=== PATIENT | female | born 2000 | race Caucasian/White ===

== ENCOUNTER 2022-11-24 09:01 | Outpatient (OUT) | payer OTHER, SELFPAY ==
--- NOTE | 2022-11-24 | US_ITS ---
The [address] [address] Patient Name: REBECCA HSU MRN: [id number] date: 2000 Sex: F Assigned Patient Location: US Current Patient Location: US Accession/Order Number: [id number] Exam Date: 11/24/2022 09:05 Report Date: 11/24/2022 09:58 At the request of: ANA PAULA HSU Procedure: US pelvis EXAM: US pelvis HISTORY: . IUD PLACEMENT WITH PAIN . COMPARISON: None. TECHNIQUE: Transvaginal scanning was performed FINDINGS: Scanning of the pelvis demonstrates retroverted uterus measuring 6.2 x 3.5 x 5 cm. Endometrial complex measures 4 mm. Within the endometrial cavity of the uterus linear hyperechoic structures are noted with shadowing consistent with an IUD which appears in adequate position. Right ovary measures 3.6 x 1.5 x 2.2 cm. Color-flow is noted. Follicles are noted. Left ovary measures 2 x 1.5 x 3 cm. Color-flow is noted. Follicles are noted. No fluid is noted in the cul-de-sac. US/US pelvis IMPRESSION: 1. Normal-appearing uterus and endometrial complex with IUD in place. 2. Normal-appearing ovaries. Electronically authenticated by: COURTNEY ESAPRZA Date: 11/24/2022 09:58
== END 2022-11-24 09:02 | disposition home or self-care (01) ==
LOC: US 09:01
PROVIDERS: Visit Provider Obstetrics & Gynecology
DX: Z30.431 Encounter for routine checking of intrauterine contraceptive device (principal)
CPT/HCPCS: 76830; 76856

== ENCOUNTER 2023-02-17 09:20 | Outpatient (OUT) | payer OTHER, SELFPAY ==
[2023-02-17 10:07] LABS: Basophils Percent Auto 0.4 % (0.2-2.0); Eosinophils Absolute Auto 0.3 10^3/uL (0.0-0.7); Eosinophils Percent Auto 3.1 % (0.9-7.0); Hematocrit 42.9 % (36.0-48.0); Hemoglobin 13.8 g/dL (12.0-16.0); Immature Granulocytes Abs Auto 0.02 10^3/uL (0.00-0.03); Immature Granulocytes Pct Auto 0.2 % (0.0-0.5); Lymphocytes Absolute Auto 3.1 10^3/uL (1.2-3.8); Lymphocytes Percent Auto 28.8 % (20.5-60.0); Mean Corpuscular HGB Conc 32.2 g/dL (29.9-35.2); Mean Corpuscular Hemoglobin 29.2 pg (26.7-34.0); Mean Corpuscular Volume 90.9 fL (81.0-99.0); Mean Platelet Volume 10.6 fL (9.5-13.5); Monocytes Absolute Auto 0.6 10^3/uL (0.3-0.8); Monocytes Percent Auto 5.1 % (1.7-12.0); Neutrophils Absolute Auto 6.8 10^3/uL (1.4-6.5); Neutrophils Percent Auto 62.4 % (43.0-75.0); Platelet Count 230 10^3/uL (150-450); Red Blood Count 4.72 10^6/uL (4.20-5.40); Red Cell Distribution Width 11.6 % (11.0-15.0); White Blood Count 10.8 10^3/uL (4.0-11.0)
[2023-02-17 10:23] LABS: Estimated Average Glucose 100 mg/dL; Glycohemoglobin A1C 5.1 % (4.5-6.2)
[2023-02-17 10:38] LABS: Alanine Aminotransferase 22 U/L (14-59); Albumin Globulin Ratio 0.9; Albumin Level 3.6 g/dL (3.4-5.0); Alkaline Phosphatase 108 U/L (46-116); Anion Gap 9.4; Aspartate Amino Transferase 17 U/L (15-37); BUN Creatinine Ratio 21.7; Bilirubin Total 0.5 mg/dL (0.2-1.0); Carbon Dioxide 28.8 mmol/L (21.0-32.0); Chloride 104 mmol/L (98-107); Chol HDL Ratio 3.3; Cholesterol 173 mg/dL (<=200); Estimated GFR (African America >60 (>=60); Estimated GFR (Non-African Ame >60 (>=60); Globulin 4.1 g/dL; Glucose 87 mg/dL (74-106); HDL Cholesterol 53 mg/dL (40-60); LDL Cholesterol Calculated 107.6 mg/dL; Potassium 4.2 mmol/L (3.5-5.1); Sodium 138 mmol/L (136-145); TSH W/ REFLEX FT4 4.022 (0.358-3.740); Total Protein 7.7 g/dL (6.4-8.2); Triglycerides 62 mg/dL (<=150); VLDL CHOLESTEROL 12.4 mg/dL
[2023-02-18 06:09] LABS: HCV Ab Non Reactive (Non Reactive); HIV Ab/p24 Ag Screen Non Reactive (Non Reactive)
== END 2023-02-17 09:21 | disposition home or self-care (01) ==
LOC: LAB 09:24
PROVIDERS: PCP Nurse Practitioner Primary Care; Visit Provider Nurse Practitioner Primary Care
DX: Z00.00 Encounter for general adult medical examination without abnormal findings (principal); Z11.59 Encounter for screening for other viral diseases; Z11.4 Encounter for screening for human immunodeficiency virus [HIV]; Z13.6 Encounter for screening for cardiovascular disorders; Z13.29 Encounter for screening for other suspected endocrine disorder
CPT/HCPCS: 36415; 80053; 80061; 83036; 84443; 85025; 86803; 87389

== ENCOUNTER 2024-01-27 11:20 | Outpatient (OUT) | payer OTHER, SELFPAY ==
--- OUTSIDE RECORDS SUMMARY | 2024-01-27 11:32 | XMS_ITS | CCD ---
Author Organization [facility] Care Team Providers Care Newspaper Managing Editor Name Role Phone DR MAIRA GODFREY Primary Care Unavailable BRANDI, DR HIRAM Somers Attending Unavailable DR HIRAM PAZ Admitting Unavailable DR HIRAM PAZ Consulting Unavailable CHETAN HUMMEL Consulting Unavailable Carole Wang Consulting Unavailable BEKAH, DR MAIRA Edmonds Primary Care Unavailable BEKAH, DR MAIRA Edmonds Consulting Unavailable BEKAH, DR MAIRA Edmonds Attending Unavailable DR MAIRA GODFREY Admitting Unavailable LUDWIG PRIEST Attending Unavailable LUDWIG PRIEST Admitting Unavailable LUDWIG PRIEST Consulting Unavailable DR MAIRA GODFREY Primary Care Unavailable Eloy Richards Attending Unavailable Eloy Richards Attending Unavailable Allergies Allergy Classification Reported Allergen(s) Allergy Type Date of Onset Reaction(s) Facility (1 source) Permethrin; Translations: [Elimite] Drug Allergy [facility] Repository Problems Problem Classification Problem Date Documented Da te Episodic/Chronic Acute and chronic tonsillitis (2 sources) Acute tonsillitis, unspecified; Translations: [ACUTE TONSILLITIS UNSPECIFIED] Onset: 05-12-2021 Episodic Malaise and fatigue (4 sources) Other fatigue; Translations: [OTHER FATIGUE] Onset: 04-30-2021 Episodic Other skin disorders (1 source) Generalized hyperhidrosis; Translations: [GENERALIZED HYPERHIDROSIS] Onset: 05-01-2021 Episodic Other upper respiratory infections (3 sources) Acute pharyngitis, unspecified; Translations: [ACUTE PHARYNGITIS UNSPECIFIED] Onset: 05-10-2021 Episodic Viral infection (2 sources) Infectious mononucleosis, unspecified without complication; Translations: [INFECTIOUS MONO UNS W/O COMP] Onset: 05-12-2021 Episodic Results Test Name Value Interpretation Reference Range Facility CBC AUTO DIFFon 05-09-2021 BASO # 0.1 103/ul Normal 0.0-0.1 [facility] Comment on above: Performed By: #### C BC #### [facility] [address] [address] [address] Moira Green Basophils/100 WBC (Bld) 1.3 % Normal 0.2-2.0 [facility] Comment on above: Performed By: #### C BC #### [facility] [address] [address] [address] Moira Green EO # 0.1 103/ul Normal 0.0-0.7 [facility] Comment on above: Performed By: #### C BC #### [facility] [address] [address] [address] Moira Green Eosinophils/100 WBC (Bld) 0.5 % Critically low 0.9-7.0 [facility] Comment on above: Performed By: #### C BC #### [facility] [address] [place] [address] Dr. Moira Green Erythrocyte distribution width (RBC) [Ratio] 13.5 % Normal 11.0-15.0 [facility] Comment on above: Performed By: #### C BC #### [facility] [address] [place] [address] Dr. Moira Green Hematocrit (Bld) [Volume fraction] 41.2 % Normal 36.0-48.0 [facility] Comment on above: Performed By: #### C BC #### [facility] [address] [place] [address] Dr. Moira Green Hemoglobin (Bld) [Mass/Vol] 13.8 g/dL Normal 12.0-16.0 [facility] Comment on above: Performed By: #### C BC #### [facility] [address] [address] [address] Moira Green IG # 0.04 10e3/ul Critically high 0.00-0.03 [facility] Comment on above: Performed By: #### C BC #### [facility] [address] [address] [address] Moira Green IG % 0.4 % Normal 0.0-0.[address] [facility] Comment on above: Performed By: #### C BC #### [facility] [address] [address] [address] Moira Green LYMPH # 5.2 103/ul Critically high 1.2-3.8 [facility] Comment on above: Performed By: #### C BC #### [facility] [address] [address] [address] Moira Green Lymphocytes/100 WBC (Bld) 52.5 % Normal 20.5-60.0 [facility] Comment on above: Performed By: #### C BC #### [facility] [address] [place] [address] Dr. Moira Green MANUAL DIFF REQ NO Normal [facility] Comment on above: Performed By: #### C BC #### [facility] [address] [place] [address] Dr. Moira Green MCH (RBC) [Entitic mass] 30.3 pg Normal 26.7-34.0 [facility] Comment on above: Performed By: #### C BC #### [facility] [address] [place] [address] Dr. Moira Green MCHC (RBC) [Mass/Vol] 33.5 g/dL Normal 29.9-35.2 [facility] Comment on above: Performed By: #### C BC #### [facility] [address] [place] [address] Dr. Moira Green MCV (RBC) [Entitic vol] 90.5 fL Normal 81.0-99.0 [facility] Comment on above: Performed By: #### C BC #### [facility] [address] [place] [address] Dr. Moira Green MONO # 0.5 103/ul Normal 0.3-0.8 [facility] Comment on above: Performed By: #### C BC #### [facility] [address] [place] [address] Dr. Moira Green Monocytes/100 WBC (Bld) 5.4 % Normal 1.7-12.0 [facility] Comment on above: Performed By: #### C BC #### [facility] [address] [place] [address] Dr. Moira Green NEUT # 4.0 103/ul Normal 1.4-6.5 [facility] Comment on above: Performed By: #### C BC #### [facility] [address] [place] [address] Dr. Moira Green Neutrophils/100 WBC (Bld) 39.9 % Critically low 43.0-75.0 [facility] Comment on above: Performed By: #### C BC #### [facility] [address] [place] [address] Dr. Moira Green Platelet mean volume (Bld) [Entitic vol] 9.4 fL Critically low 9.5-13.5 [facility] Comment on above: Performed By: #### C BC #### [facility] [address] [place] [address] Dr. Moira Green PLT 294 103/ul Normal 150-[address] [facility] Comment on above: Performed By: #### C BC #### [facility] [address] [place] [address] Dr. Moira Green RBC 4.55 106/ul Normal 4.20-5.[address] [facility] Comment on above: Performed By: #### C BC #### [facility] [address] [place] [address] Dr. Moira Green WBC 9.9 103/ul Normal 4.0-11.[address] [facility] Comment on above: Performed By: #### C BC #### [facility] [address] [place] [address] NECK ST W CONon CT NECK ST W CON CT NECK ST W CON: 05/08/2021 9:17 PM EDT CLINICAL HISTORY: 20 years old Female with Peritonsillar abscess. [place]. COMPARISON: None available. TECHNIQUE: Contiguous axial images were obtained through the neck from the skull base inferiorly to the thoracic inlet after the intravenous administration of contrast. Additional coronal and sagittal reconstruction images were obtained. Dose reduction techniques were achieved by using automated exposure control and/or adjustment of mA and/or kV according to patient size and/or use of iterative reconstruction technique. FINDINGS: Prominence of the adenoids and lingular tonsils is present without abnormal hypoenhancement to suggest abscess formation. Numerous mesenteric and enlarged cervical lymph nodes are seen bilaterally involving multiple change with the larger as follows: Right level 2 lymph nodes measuring 1.6 x 0.9 x 2.8 cm and 1.3 x 1.5 x 2.0 cm, left level 2 cervical lymph nodes measuring 1.0 x 2.0 x 2.4 cm and 1.0 x 2.1 x 2.2 cm left level 1 lymph node measuring 2.8 x 1.9 x 0.9 cm. Additional rounded abnormal appearing lymph nodes are seen throughout. The base of the tongue, parotid and submandibular glands as well as the true and false vocal cords appear normal with no masses identified. The airway is widely patent. The prevertebral soft tissues appear normal. The parapharyngeal spaces are preserved. Fascial planes are preserved. The piriform sinuses and aryepiglottic folds are symmetric and appear normal. The enhancement of the major arterial and venous structures is normal. The parotid and salivary glands are symmetric. The muscular elements in the neck are symmetric. Visualized portions the right and left lobe of the thyroid gland appears symmetric and normal. The osseous structures are grossly unremarkable. IMPRESSION: 1. Mild cervical lymphadenopathy diffusely most significant at the level 2 nodes compatible with provided history of mono. 2. Mild tonsillar and adenoidal enlargement also likely relating to mottle. No drainable abscess formation identified. Recommendation: Follow up of adenopathy to resolution clinically is recommended. Neck ultrasound could be obtained as a follow-up imaging if there is lack of resolution clinically. Electronically authenticated by: CAROLE WANG Date: 2021-05-08 23:[address] [facility] PREG HCG QUALon 05-09-2021 , QUAL Negative Normal NEGATIVE [facility] Comment on above: Performed By: #### P REG #### [facility] [address] [place] [address] Dr. Moira Green PROTIMEon 05-09-2021 INR Coag (PPP) [Relative time] 0.93 {INR} Normal [facility] Comment on above: Performed By: #### P T, PTT #### [facility] [address] [place] [address] Dr. Moira Green INR GUIDELINES SEE BELOW Normal [facility] Comment on above: Result Comment: LANDEN RED INR: 2.0 - 3.0 CONDITIONS NOT LISTED BELOW 2.5 - 3.5 FOR PROSTHETIC HEART VALVE REPLACEMENT 2.5 - 3.5 RECURRENT THROMBOSIS Performed By: #### P T, PTT #### [facility] [address] [place] [address] Dr. Moira Green PT Coag (PPP) [Time] 10.1 s Normal 9.0-11.[address] [facility] Comment on above: Performed By: #### P T, PTT #### [facility] [address] [place] [address] Dr. Moira Green PTTon 05-09-2021 aPTT Coag (Bld) [Time] 30.5 s Normal 22.3-36.[address] [facility] Comment on above: Performed By: #### P T, PTT #### [facility] [address] [place] [address] Dr. Moira Green MELVA-SANTOYO VIRUS (EBV) AB PROFILEon 05-01-2021 EBV Ab VCA, IgG <18.0 Normal 0.0-17.9 [facility] Comment on above: Result Comment: Nega tive <18.0 Equivocal 18.0 - 21.9 Positive >21.9 Performed By: #### E BVPROF #### [facility] [address] [place] [address] Dr. Moira Green EBV Ab VCA, IgM 68.0 U/mL Critically high 0.0-35.[address] [facility] Comment on above: Result Comment: Nega tive <36.0 Equivocal 36.0 - 43.9 Positive >43.9 Performed By: #### E BVPROF #### [facility] [address] [place] [address] Dr. Moira Green EBV Nuclear Antigen Ab, IgG <18.0 Normal 0.0-17.[address] [facility] Comment on above: Result Comment: Nega tive <18.0 Equivocal 18.0 - 21.9 Positive >21.9 Performed By: #### E BVPROF #### [facility] [address] [place] [address] Dr. Moira Green Interpretation: Comment Normal [facility] Comment on above: Result Comment: EBV Interpretation Chart Cleary: Antibody Present + Antibody Absent - Interpretation VCA-IgM VCA-IgG EBNA-IgG . No previous infection/ - - - Susceptible Primary infection (new + + - or recent) Past Infection +or- + + See comment below* + - - *Results indicate infection with EBV at some time however cannot predict the timing of the infection since antibodies to EBNA usually develop after primary infection or, alternatively, approximately 5-10% of patients with EBV never develop antibodies to EBNA. Performed By: #### E BVPROF #### [facility] [address] [place] [address] Dr. Moira Green CBC W MANUAL DIFFon 05-01-19 22 ATYPICAL LYMPH # Normal [facility] Comment on above: Performed By: #### P T, PTT #### [facility] [address] [place] [address] Dr. Moira Green ATYPICAL LYMPH % Normal [facility] Comment on above: Performed By: #### P T, PTT #### [facility] [address] [place] [address] Dr. Moira Green BAND # 0.9 103/ul Critically high 0.0-0.3 [facility] Comment on above: Performed By: #### P T, PTT #### [facility] [address] [place] [address] Dr. Moira Green BAND % 16 % Critically high 0-5 [facility] Comment on above: Performed By: #### P T, PTT #### [facility] [address] [place] [address] Dr. Moira Green BASOM # 0.06 103/ul Normal 0.00-0.[address] [facility] Comment on above: Performed By: #### P T, PTT #### [facility] [address] [place] [address] Dr. Moiar Green BASOM % 1.0 % Normal 0.2-2.[address] [facility] Comment on above: Performed By: #### P T, PTT #### [facility] [address] [place] [address] Dr. Moira Green BLAST # Normal [facility] Comment on above: Performed By: #### P T, PTT #### [facility] [address] [place] [address] Dr. Moira Green BLAST % Normal [facility] Comment on above: Performed By: #### P T, PTT #### [facility] [address] [place] [address] Dr. Moira Green CORRECTED WBC Normal 4.0-11.0 [facility] Comment on above: Performed By: #### P T, PTT #### [facility] [address] [place] [address] Dr. Moira Green EOS # 0.00 103/ul Normal 0.00-0.70 [facility] Comment on above: Performed By: #### P T, PTT #### [facility] [address] [place] [address] Dr. Moira Green EOS% 0.0 % Critically low 0.9-7.0 [facility] Comment on above: Performed By: #### P T, PTT #### [facility] [address] [place] [address] Dr. Moira Green HCT 43.9 % Normal 36.0-48.0 [facility] Comment on above: Performed By: #### P T, PTT #### [facility] [address] [place] [address] Dr. Moira Green HGB 14.8 g/dl Normal 12.0-16.0 [facility] Comment on above: Performed By: #### P T, PTT #### [facility] [address] [place] [address] Dr. Moira Green LYMPHM # 1.31 103/ul Normal 1.20-3.80 [facility] Comment on above: Performed By: #### P T, PTT #### [facility] [address] [place] [address] Dr. Moira Green LYMPHM% 23.0 % Normal 20.5-60.0 [facility] Comment on above: Performed By: #### P T, PTT #### [facility] [address] [place] [address] Dr. Moira Green MCH 30.3 pg Normal 26.7-34.0 [facility] Comment on above: Performed By: #### P T, PTT #### [facility] [address] [place] [address] Dr. Moira Green MCHC 33.7 g/dl Normal 29.9-35.2 [facility] Comment on above: Performed By: #### P T, PTT #### [facility] [address] [place] [address] Dr. Moira Green MCV 89.8 fL Normal 81.0-99.0 [facility] Comment on above: Performed By: #### P T, PTT #### [facility] [address] [place] [address] Dr. Moira Green METAMYELOCYTE # 0.1 103/ul Normal [facility] Comment on above: Performed By: #### P T, PTT #### [facility] [address] [place] [address] Dr. Moira Green METAMYELOCYTE % 2 % Normal [facility] Comment on above: Performed By: #### P T, PTT #### [facility] [address] [place] [address] Dr. Moira Green MONOM# 0.40 103/ul Normal 0.30-0.[address] [facility] Comment on above: Performed By: #### P T, PTT #### [facility] [address] [place] [address] Dr. Moira Green MONOM% 7.0 % Normal 1.7-12.[address] [facility] Comment on above: Performed By: #### P T, PTT #### [facility] [address] [place] [address] Dr. Moira Green MPV 10.3 fL Normal 9.5-13.5 [facility] Comment on above: Performed By: #### P T, PTT #### [facility] [address] [place] [address] Dr. Moira Green MYELOCYTE # 0.1 103/ul Normal [facility] Comment on above: Performed By: #### P T, PTT #### [facility] [address] [place] [address] Dr. Moira Green MYELOCYTE % 1 % Normal [facility] Comment on above: Performed By: #### P T, PTT #### [facility] [address] [address] [address] Moira Green NRBC Normal [facility] Comment on above: Performed By: #### P T, PTT #### [facility] [address] [place] [address] Dr. Moira Green PLT 151 103/ul Normal 150-450 [facility] Comment on above: Performed By: #### P T, PTT #### [facility] [address] [place] [address] Dr. Moira Green RBC 4.89 106/ul Normal 4.20-5.40 [facility] Comment on above: Performed By: #### P T, PTT #### [facility] [address] [place] [address] Dr. Moira Green RDW 12.1 % Normal 11.0-15.0 [facility] Comment on above: Performed By: #### P T, PTT #### [facility] [address] [place] [address] Dr. Moira Green SEG # 2.85 103/ul Normal 1.40-6.[address] [facility] Comment on above: Performed By: #### P T, PTT #### [facility] [address] [place] [address] Dr. Moira Green SEG % 50.0 % Normal 43.0-75.0 [facility] Comment on above: Performed By: #### P T, PTT #### [facility] [address] [place] [address] Dr. Moira Green WBC 5.7 103/ul Normal 4.0-11.0 [facility] Comment on above: Performed By: #### P T, PTT #### [facility] [address] [place] [address] Dr. Moira Green FREE T3on 04-30-2021 FREE T3 1.71 pg/mlL Critically low 2.77-5.27 [facility] Comment on above: Performed By: #### T SH, BMP, FT3 #### [facility] [address] [place] [address] Dr. Moira Green FREE T4on 04-30-2021 Free T4 [Mass/Vol] 1.00 ng/dL Normal 0.78-2.19 [facility] Comment on above: Performed By: #### F T4 #### [facility] [address] [place] [address] Dr. Moira Green PROF CHEM 8 (BAS METB)on Anion gap [Moles/Vol] 14.1 mmol/L Normal [facility] Comment on above: Performed By: #### T SH, BMP, FT3 #### [facility] [address] [place] [address] Dr. Moira Green Calcium [Mass/Vol] 8.7 mg/dL Normal 8.4-10.2 [facility] Comment on above: Performed By: #### T SH, BMP, FT3 #### [facility] [address] [place] [address] Dr. Moira Green Chloride [Moles/Vol] 101 mmol/L Normal 98-[address] [facility] Comment on above: Performed By: #### T SH, BMP, FT3 #### [facility] [address] [place] [address] Dr. Moira Green CO2 [Moles/Vol] 23.9 mmol/L Normal 22.0-30.0 [facility] Comment on above: Performed By: #### T SH, BMP, FT3 #### [facility] [address] [place] [address] Dr. Moira Green Creatinine [Mass/Vol] 0.79 mg/dL Normal 0.52-1.[address] [facility] Comment on above: Performed By: #### T SH, BMP, FT3 #### [facility] [address] [address] [address] Moira Green EGFR-AF TONGAN >60 Normal >=60 [facility] Comment on above: Performed By: #### T MARTÍN, BMP, FT3 #### [facility] [address] [address] [address] Moira Green EGFR-NON AF TONGAN >60 Normal >=60 [facility] Comment on above: Performed By: #### T MARTÍN, BMP, FT3 #### [facility] [address] [place] [address] Dr. Moira Green Glucose [Mass/Vol] 119 mg/dL Critically high 74-106 [facility] Comment on above: Performed By: #### T MARTÍN, BMP, FT3 #### [facility] [address] [place] [address] Dr. Moira Green Potassium [Moles/Vol] 4.0 mmol/L Normal 3.4-5.0 [facility] Comment on above: Performed By: #### T MARTÍN, BMP, FT3 #### [facility] [address] [place] [address] Dr. Moira Green Sodium [Moles/Vol] 135 mmol/L Critically low 137-145 [facility] Comment on above: Performed By: #### T MARTÍN, BMP, FT3 #### [facility] [address] [place] [address] Dr. Moira Green Urea nitrogen [Mass/Vol] 9.0 mg/dL Normal 7.0-17.0 [facility] Comment on above: Performed By: #### T MARTÍN, BMP, FT3 #### [facility] [address] [place] [address] Dr. Moira Green Urea nitrogen/Creatinin e [Mass ratio] 11.4 mg/mg Normal [facility] Comment on above: Performed By: #### T MARTÍN, BMP, FT3 #### [facility] [address] [place] [address] Dr. Moira Green TSHon 04-30-2021 TSH 2.155 uIU/mL Normal 0.470-4.680 [facility] Comment on above: Performed By: #### T SH, BMP, FT3 #### [facility] [address] [address] [address] Moira Green TSH RANGE SEE BELOW Normal [facility] Comment on above: Result Comment: <0.3 4 UIU/ml HYPERTHYROID 0.34-5.60 UIU/ml EUTHYROID >5.60 UIU/ml HYPOTHYROID Performed By: #### T SH, BMP, FT3 #### [facility] [address] [address] [address] Moira Green Blood Cultureon 01-17-2021 Bacteria identified Cx Nom (Bld) NO GROWTH 5 DAYS PERFORMED BY: [place] [address] PATHOLOGIST [employer] RECREATION DIRECTOR RM CURTIS M.D. [facility] Comment on above: Performed By: #### B MP, CBC, HEPATIC, LIPASE #### [address] Bacteria identified Cx Nom (Bld) NO GROWTH 5 DAYS PERFORMED BY: [place] [address] PATHOLOGIST [employer] RECREATION DIRECTOR RM CURTSI M.D. [facility] Comment on above: Performed By: #### B MP, CBC, HEPATIC, LIPASE #### [address] Complete Blood Count Auto Di ffon 01-17-2021 Basophils (Bld) [#/Vol] 0.0 10*3/uL Normal 0.0-0.2 [facility] Comment on above: Result Comment: PERF ORMED BY: [place] [address] PATHOLOGIST [employer] RECREATION DIRECTOR RM CURTIS M.D. Performed By: #### B MP, CBC, HEPATIC, LIPASE #### [facility] [address] [place] [address] [place] Basophils/100 WBC (Bld) 0.4 % Normal . [facility] Comment on above: Performed By: #### B MP, CBC, HEPATIC, LIPASE #### [address] Eosinophils (Bld) [#/Vol] 0.3 10*3/uL Normal 0.0-0.45 [facility] Comment on above: Performed By: #### B MP, CBC, HEPATIC, LIPASE #### [address] Eosinophils/100 WBC (Bld) 2.3 % Normal . [facility] Comment on above: Performed By: #### B MP, CBC, HEPATIC, LIPASE #### [address] Erythrocyte distribution width (RBC) [Ratio] 11.9 % Normal 11.9-15.3 [facility] Comment on above: Performed By: #### B MP, CBC, HEPATIC, LIPASE #### [address] Hematocrit (Bld) [Volume fraction] 39.1 % Normal 34.0-46.4 [facility] Comment on above: Performed By: #### B MP, CBC, HEPATIC, LIPASE #### [address] Hemoglobin (Bld) [Mass/Vol] 12.9 g/dL Normal 11.8-15.4 [facility] Comment on above: Performed By: #### B MP, CBC, HEPATIC, LIPASE #### [address] Lymphocytes (Bld) [#/Vol] 3.3 10*3/uL Normal 1.00-4.8 [facility] Comment on above: Performed By: #### B MP, CBC, HEPATIC, LIPASE #### [address] Lymphocytes/100 WBC (Bld) 29.0 % Normal . [facility] Comment on above: Performed By: #### B MP, CBC, HEPATIC, LIPASE #### [address] MCH (RBC) [Entitic mass] 30.2 pg Normal 24.7-34.3 [facility] Comment on above: Performed By: #### B MP, CBC, HEPATIC, LIPASE #### [address] MCV (RBC) [Entitic vol] 91.3 fL Normal 80-100 [facility] Comment on above: Performed By: #### B MP, CBC, HEPATIC, LIPASE #### [address] Mean Corpuscular HGB Conc 33.1 g/dL Normal 32.0-35.0 [facility] Comment on above: Performed By: #### B MP, CBC, HEPATIC, LIPASE #### [address] Monocytes (Bld) [#/Vol] 0.5 10*3/uL Normal 0.0-0.8 [facility] Comment on above: Performed By: #### B MP, CBC, HEPATIC, LIPASE #### [address] Monocytes/100 WBC (Bld) 4.8 % Normal . [facility] Comment on above: Performed By: #### B MP, CBC, HEPATIC, LIPASE #### [address] Neutrophils (Bld) [#/Vol] 7.2 10*3/uL Normal 1.8-7.7 [facility] Comment on above: Performed By: #### B MP, CBC, HEPATIC, LIPASE #### [address] Neutrophils/100 WBC (Bld) 63.5 % Normal . [facility] Comment on above: Performed By: #### B MP, CBC, HEPATIC, LIPASE #### [address] Nucleated RBC/100 WBC (Bld) [Ratio] 0.0 % Normal 0-0.5 [facility] Comment on above: Performed By: #### B MP, CBC, HEPATIC, LIPASE #### [address] [place] [address] [place] Platelet mean volume (Bld) [Entitic vol] 8.2 fL Normal 6.3-10.7 [facility] Comment on above: Performed By: #### B MP, CBC, HEPATIC, LIPASE #### [address] Platelets (Bld) [#/Vol] 263 10*3/uL Normal 150-450 [facility] Comment on above: Performed By: #### B MP, CBC, HEPATIC, LIPASE #### [address] RBC (Bld) [#/Vol] 4.29 10*6/uL Normal 3.60-5.[address] [facility] Comment on above: Performed By: #### B MP, CBC, HEPATIC, LIPASE #### [address] WBC (Bld) [#/Vol] 11.3 10*3/uL High 4.5-11.[address] [facility] Comment on above: Performed By: #### B MP, CBC, HEPATIC, LIPASE #### [address] Lactic Acidon 01-17-2021 Lactate [Moles/Vol] 0.7 mmol/L Normal 0.5-2.2 [facility] Comment on above: Result Comment: PERF ORMED BY: [place] [address] PATHOLOGIST [employer] RECREATION DIRECTOR RM CURTIS M.D. Performed By: #### B MP, CBC, HEPATIC, LIPASE #### [address] Basic Metabolic Panelon Calcium [Mass/Vol] 9.1 mg/dL Normal 8.2-10.2 [facility] Comment on above: Performed By: #### B MP, CBC, HEPATIC, LIPASE #### [address] Chloride [Moles/Vol] 102 mmol/L Normal 95-114 [facility] Comment on above: Performed By: #### B MP, CBC, HEPATIC, LIPASE #### [facility] [address] CO2 [Moles/Vol] 25.0 mmol/L Normal 22.0-30.0 [facility] Comment on above: Performed By: #### B MP, CBC, HEPATIC, LIPASE #### [facility] [address] Creatinine [Mass/Vol] 0.69 mg/dL Normal 0.44-1.03 [facility] Comment on above: Performed By: #### B MP, CBC, HEPATIC, LIPASE #### [address] Creatinine Clr Calc Pharmacy 111.93 [facility] Comment on above: Performed By: #### B MP, CBC, HEPATIC, LIPASE #### [address] Estimated GFR ( Zahira > 60 [facility] Comment on above: Result Comment: GFR estimated reference range: According to KDOQI guidelines, <60 ml/min/1.73m2 is sufficient to diagnose a patient with chronic kidney disease. Performed By: #### B MP, CBC, HEPATIC, LIPASE #### [address] Estimated GFR (Non- Am > 60 [facility] Comment on above: Performed By: #### B MP, CBC, HEPATIC, LIPASE #### [address] Glucose [Mass/Vol] 80 mg/dL Normal 70-100 [facility] Comment on above: Result Comment: [place] om Glucose Reference Range is dependent on time and content of last meal. Glucose of more than 200 mg/dL in a nonstressed, ambulatory subject supports the diagnosis of Diabetes Mellitus. ADA recommended reference range Performed By: #### B MP, CBC, HEPATIC, LIPASE #### [address] Potassium [Moles/Vol] 3.8 mmol/L Normal 3.5-5.1 [facility] Comment on above: Performed By: #### B MP, CBC, HEPATIC, LIPASE #### [facility] [address] [place] [address] [place] Sodium [Moles/Vol] 135 mmol/L Low 136-146 [facility] Comment on above: Performed By: #### B MP, CBC, HEPATIC, LIPASE #### [facility] [address] [place] [id number] [place] Urea nitrogen [Mass/Vol] 11 mg/dL Normal 9-23 [facility] Comment on above: Performed By: #### B MP, CBC, HEPATIC, LIPASE #### [facility] [address] Blood Cultureon 01-16-2021 Bacteria identified Cx Nom (Bld) Critical value result called at 2126 on 01/16/21 Gram Stain Gram Positive Cocci ORGANISM: Staphylococcus sp coag neg (O:STACN) Aerobic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
[2024-01-27 12:08] LABS: Basophils Percent Auto 0.3 % (0.2-2.0); Eosinophils Absolute Auto 0.3 10^3/uL (0.0-0.7); Eosinophils Percent Auto 2.4 % (0.9-7.0); Hematocrit 42.5 % (36.0-48.0); Immature Granulocytes Abs Auto 0.15 10^3/uL (0.00-0.03); Immature Granulocytes Pct Auto 1.3 % (0.0-0.5); Lymphocytes Absolute Auto 2.9 10^3/uL (1.2-3.8); Mean Corpuscular HGB Conc 32.9 g/dL (29.9-35.2); Mean Corpuscular Hemoglobin 29.2 pg (26.7-34.0); Mean Corpuscular Volume 88.5 fL (81.0-99.0); Mean Platelet Volume 9.4 fL (9.5-13.5); Monocytes Absolute Auto 0.5 10^3/uL (0.3-0.8); Monocytes Percent Auto 4.7 % (1.7-12.0); Neutrophils Absolute Auto 7.5 10^3/uL (1.4-6.5); Neutrophils Percent Auto 66.3 % (43.0-75.0); Platelet Count 341 10^3/uL (150-450); Red Cell Distribution Width 12.1 % (11.0-15.0); White Blood Count 11.4 10^3/uL (4.0-11.0)
[2024-01-27 12:25] LABS: Estimated Average Glucose 108 mg/dL; Glycohemoglobin A1C 5.4 % (4.5-6.2)
[2024-01-27 12:40] LABS: Thyroid Stimulating Hormone 2.035 uIU/mL (0.358-3.740)
== END 2024-01-27 11:21 | disposition home or self-care (01) ==
LOC: LAB 11:24
PROVIDERS: Visit Provider Obstetrics & Gynecology
DX: R63.5 Abnormal weight gain (principal); N92.1 Excessive and frequent menstruation with irregular cycle
CPT/HCPCS: 36415; 83036; 84443; 85025

== ENCOUNTER 2024-11-01 12:08 | Outpatient (REF) | payer OTHER, SELFPAY ==
--- OUTSIDE RECORDS SUMMARY | 2024-11-01 12:16 | XMS_ITS | CCD ---
Author Organization [facility] Care Team Providers Care Packing Machine Can Feeder Name Role Phone DR MAIRA GODFREY Primary Care Unavailable BRANDI, DR HIRAM Somers Attending Unavailable BRANDI, DR HIRAM Somers Admitting Unavailable BRANDI, DR HIRAM Somers Consulting Unavailable CHETAN HUMMEL Consulting Unavailable Carole Wang Consulting Unavailable BEKAH, DR MAIRA Edmonds Primary Care Unavailable BEKAH, DR MAIRA Edmonds Consulting Unavailable BEKAH, DR MAIRA Edmonds Attending Unavailable BEKAH, DR MAIRA Edmonds Admitting Unavailable LUDWIG PRIEST Attending Unavailable LUDWIG PRIEST Admitting Unavailable LUDWIG PRIEST Consulting Unavailable BEKAH, DR MAIRA Edmonds Primary Care Unavailable Eloy Richards Attending Unavailable Eloy Richards Attending Unavailable Unavailable Primary Care Provider UnavailANA PAULA Espinosa Attending Unavailable CYNDI WU Attending Unavailable ANA PAULA ROBLERO Attending Unavailable CYNDI WU Attending Unavailable Allergies Allergy Classification Reported Allergen(s) Allergy Type Date of Onset Reaction(s) Facility (1 source) Permethrin; Translations: [Elimite] Drug Allergy [facility] Repository (4 sources) Permethrin Drug Allergy 01-27-2024 [facility] Work Phone: Medications Current Medications Medication Drug Class(es) Dates Sig (Normalized) Sig (Original) 24 hr metFORMIN hydrochloride 500 mg extended release oral tablet (13 sources) Biguanide Start: 01-27-2024 End: 01-26-2025 take 1 tablet by mouth every twenty-four hours at mealtime metFORMIN XR (Glucophage-XR) 500 MG 24 hr tablet Indications: Weight gain Take 1 tablet (500 mg) by mouth in the evening. Take with meals Do not crush, chew, or split. 30 tablet 11 01/27/2024 01/26/2025 Active phentermine hydrochloride 37.5 mg oral tablet (20 sources) Sympathomimetic Amine Anorectic Start: 03-15-2024 End: 10-11-2024 take 1 tablet by mouth before mealtime phentermine (Adipex-P) 37.5 MG tablet Indications: Encounter for weight management Take 1 tablet (37.5 mg) by mouth in the morning. Take before meals. 90 tablet 07/13/2024 Active Problems Active Problems Problem Classification Problem Date Documented Date Episodic/Chronic Acute and chronic tonsillitis (2 sources) Acute tonsillitis, unspecified; Translations: [ACUTE TONSILLITIS UNSPECIFIED] Onset: 05-12-2021 Episodic Administrative/social admission (5 sources) Patient encounter status; Translations: [Persons encountering health services in other specified circumstances] 03-15-2024 Episodic Contraceptive and procreative management (2 sources) Intrauterine contraceptive device in situ; Translations: [Encounter for routine checking of intrauterine contraceptive device] 01-27-2024 Episodic Malaise and fatigue (4 sources) Other fatigue; Translations: [OTHER FATIGUE] Onset: 04-30-2021 Episodic Other nutritional; endocrine; and metabolic disorders (2 sources) Weight increased; Translations: [Abnormal weight gain] 01-27-2024 Episodic Other skin disorders (1 source) Generalized hyperhidrosis; Translations: [GENERALIZED HYPERHIDROSIS] Onset: 05-01-2021 Episodic Other skin disorders (1 source) Skin tag; Translations: [Other hypertrophic disorders of the skin] 11-01-2024 Episodic Other upper respiratory infections (3 sources) Acute pharyngitis, unspecified; Translations: [ACUTE PHARYNGITIS UNSPECIFIED] Onset: 05-10-2021 Episodic Viral infection (2 sources) Infectious mononucleosis, unspecified without complication; Translations: [INFECTIOUS MONO UNS W/O COMP] Onset: 05-12-2021 Episodic Past or Other Problems Problem Classification Problem Date Documented Da te Episodic/Chronic Unclassified (1 source) Patient encounter status 04-13-2024 Results Test Name Value Interpretation Reference Range Facility ALL CBC WITH AUTO DIFFon BASOPHILS ABSOLUTE AUTO 0 [facility] Basophils/100 WBC (Bld) 0.3 % 0.2 - 2.0 % [facility] Eosinophils/100 WBC (Bld) 2.4 % 0.9 - 7.0 % [facility] Erythrocyte distribution width (RBC) [Ratio] 12.1 % 11.0 - 15.0 % [facility] Hematocrit (Bld) [Volume fraction] 42.5 % 36.0 - 48.0 % [facility] Hemoglobin (Bld) [Mass/Vol] 14 g/dL 12.0 - 16.0 g/dL [facility] IMMATURE GRANULOCYTES ABS AUTO 0.15 High [facility] Immature granulocytes/100 WBC (Bld) 1.3 % High 0.0 - 0.5 % [facility] Interpretation and review of laboratory results Abnormal [facility] LYMPHOCYTES ABSOLUTE AUTO 2.9 [facility] Lymphocytes/100 WBC (Bld) 25 % 20.5 - 60.0 % [facility] MCH (RBC) [Entitic mass] 29.2 pg 26.7 - 34.0 pg [facility] MCHC (RBC) [Mass/Vol] 32.9 g/dL 29.9 - 35.2 g/dL [facility] MCV (RBC) [Entitic vol] 88.5 fL 81.0 - 99.0 fL [facility] MONOCYTES ABSOLUTE AUTO 0.5 [facility] Monocytes/100 WBC (Bld) 4.7 % 1.7 - 12.0 % [facility] NEUTROPHILS ABSOLUTE AUTO 7.5 High [facility] Neutrophils/100 WBC (Bld) 66.3 % 43.0 - 75.0 % [facility] Platelet mean volume (Bld) [Entitic vol] 9.4 fL Low 9.5 - 13.5 fL [facility] TBH EO # 0.3 [facility] PLT 341 [facility] RBC 4.8 [facility] WBC 11.4 High [facility] CBC AUTO DIFFon 05-09-2021 BASO # 0.1 103/ul Normal 0.0-0.1 [facility] Comment on above: Performed By: #### C BC #### [facility] [address], [place] [address] Dr. Moira Green Basophils/100 WBC (Bld) 1.3 % Normal 0.2-2.0 [facility] Comment on above: Performed By: #### C BC #### [facility] [address], [place] [address] Dr. Moira Green EO # 0.1 103/ul Normal 0.0-0.7 [facility] Comment on above: Performed By: #### C BC #### [facility] [address] [place] [address] [address] Moira Green Eosinophils/100 WBC (Bld) 0.5 % Critically low 0.9-7.0 [facility] Comment on above: Performed By: #### C BC #### [facility] [address] [place] [address] Dr. Moira Green Erythrocyte distribution width (RBC) [Ratio] 13.5 % Normal 11.0-15.0 [facility] Comment on above: Performed By: #### C BC #### [facility] [address] [place] [address] Dr. Moira Green Hematocrit (Bld) [Volume fraction] 41.2 % Normal 36.0-48.0 [facility] Comment on above: Performed By: #### C BC #### [facility] [address] [place] [address] Dr. Moira Green Hemoglobin (Bld) [Mass/Vol] 13.8 g/dL Normal 12.0-16.0 [facility] Comment on above: Performed By: #### C BC #### [facility] [address] [place] [address] Dr. Moira Green IG # 0.04 10e3/ul Critically high 0.00-0.03 [facility] Comment on above: Performed By: #### C BC #### [facility] [address] [place] [address] Dr. Moira Green IG % 0.4 % Normal 0.0-0.5 [facility] Comment on above: Performed By: #### C BC #### [facility] [address] [place] [address] Dr. Moira Grene LYMPH # 5.2 103/ul Critically high 1.2-3.8 [facility] Comment on above: Performed By: #### C BC #### [facility] [address] [place] [address] Dr. Moira Green Lymphocytes/100 WBC (Bld) 52.5 % Normal 20.5-60.0 [facility] Comment on above: Performed By: #### C BC #### [facility] [address] [place] [address] Dr. Moira Green MANUAL DIFF REQ NO Normal [facility] Comment on above: Performed By: #### C BC #### [facility] [address] [place] [address] Dr. Moira Green MCH (RBC) [Entitic mass] 30.3 pg Normal 26.7-34.0 [facility] Comment on above: Performed By: #### C BC #### [facility] [address] [place] [address] Dr. Moira Green MCHC (RBC) [Mass/Vol] 33.5 g/dL Normal 29.9-35.2 [facility] Comment on above: Performed By: #### C BC #### [facility] [address] [place] [address] Dr. Moira Green MCV (RBC) [Entitic vol] 90.5 fL Normal 81.0-99.0 [facility] Comment on above: Performed By: #### C BC #### [facility] [address] [place] [address] Dr. Moira Green MONO # 0.5 103/ul Normal 0.3-0.8 [facility] Comment on above: Performed By: #### C BC #### [facility] [address] [place] [address] Dr. Moira Green Monocytes/100 WBC (Bld) 5.4 % Normal 1.7-12.0 [facility] Comment on above: Performed By: #### C BC #### [facility] [address] [place] [address] Dr. Moira Green NEUT # 4.0 103/ul Normal 1.4-6.5 [facility] Comment on above: Performed By: #### C BC #### [facility] [address] [place] [address] Dr. Moira Green Neutrophils/100 WBC (Bld) 39.9 % Critically low 43.0-75.0 [facility] Comment on above: Performed By: #### C BC #### [facility] [address] [place] [address] [address] Moira Green Platelet mean volume (Bld) [Entitic vol] 9.4 fL Critically low 9.5-13.5 [facility] Comment on above: Performed By: #### C BC #### [facility] [address] [place] [address] [address] Moira Green PLT 294 103/ul Normal 150-450 [facility] Comment on above: Performed By: #### C BC #### [facility] [address] [place] [address] [address] Moira Green RBC 4.55 106/ul Normal 4.20-5.40 [facility] Comment on above: Performed By: #### C BC #### [facility] [address] [place] [address] [address] Moira rGeen WBC 9.9 103/ul Normal 4.0-11.0 [facility] Comment on above: Performed By: #### C BC #### [facility] [address] [place] [address] NECK ST W CONon CT NECK ST W CON CT NECK ST W CON: 05/08/2021 9:17 PM EDT CLINICAL HISTORY: 20 years old Female with Peritonsillar abscess. [place]. COMPARISON: None available. TECHNIQUE: Contiguous axial images [...] CAROLE WANG Date: 2021-05-08 23:00 Normal [facility] PREG HCG QUALon 05-09-2021 , QUAL Negative Normal NEGATIVE [facility] Comment on above: Performed By: #### P REG #### [facility] [address] [place] [address] Dr. Moira Green PROTIMEon 05-09-2021 INR Coag (PPP) [Relative time] 0.93 {INR} Normal [facility] Comment on above: Performed By: #### P T, PTT #### [facility] [address] [place] [address] [address] Moira Green INR GUIDELINES SEE BELOW Normal [facility] Comment on above: Result Comment: LANDEN RED INR: 2.0 - 3.0 CONDITIONS NOT LISTED BELOW 2.5 - 3.5 FOR PROSTHETIC HEART VALVE REPLACEMENT 2.5 - 3.5 RECURRENT THROMBOSIS Performed By: #### P T, PTT #### [facility] [address] [address] [address] Moira Green PT Coag (PPP) [Time] 10.1 s Normal 9.0-11.6 [facility] Comment on above: Performed By: #### P T, PTT #### [facility] [address] [place] [address] Dr. Moira Green PTTon 05-09-2021 aPTT Coag (Bld) [Time] 30.5 s Normal 22.3-36.2 [facility] Comment on above: Performed By: #### P T, PTT #### [facility] [address] [place] [address] Dr. Moira Green MELVA-SANTOYO VIRUS (EBV) AB PROFILEon 05-01-2021 EBV Ab VCA, IgG <18.0 Normal 0.0-17.[address] [facility] Comment on above: Result Comment: Nega tive <18.0 Equivocal 18.0 - 21.9 Positive >21.9 Performed By: #### E BVPROF #### [facility] [address] [place] [address] Dr. Moira Green EBV Ab VCA, IgM 68.0 U/mL Critically high 0.0-35.9 [facility] Comment on above: Result Comment: Nega tive <36.0 Equivocal 36.0 - 43.9 Positive >43.9 Performed By: #### E BVPROF #### [facility] [address] [place] [address] Dr. Moira Green EBV Nuclear Antigen Ab, IgG <18.0 Normal 0.0-17.9 [facility] Comment on above: Result Comment: Nega tive <18.0 Equivocal 18.0 - 21.9 Positive >21.9 Performed By: #### E BVPROF #### [facility] [address] [place] [address] Dr. Moira Green Interpretation: Comment Normal [facility] Comment on above: Result Comment: EBV Interpretation [...] EBNA. Performed By: #### E BVPROF #### [facility] [address] [place] [address] Dr. Moira Green CBC W MANUAL DIFFon 05-01-19 22 ATYPICAL LYMPH # Normal [facility] Comment on above: Performed By: #### P T, PTT #### [facility] [address] [place] [address] Dr. Moira Green ATYPICAL LYMPH % Normal [facility] Comment on above: Performed By: #### P T, PTT #### [facility] [address] [place] [address] Dr. Moira Green BAND # 0.9 103/ul Critically high 0.0-0.[address] [facility] Comment on above: Performed By: #### P T, PTT #### [facility] [address] [place] [address] Dr. Moira Green BAND % 16 % Critically high 0-[address] [facility] Comment on above: Performed By: #### P T, PTT #### [facility] [address] [place] [address] Dr. Moira Green BASOM # 0.06 103/ul Normal 0.00-0.10 [facility] Comment on above: Performed By: #### P T, PTT #### [facility] [address] [place] [address] Dr. Moira Green BASOM % 1.0 % Normal 0.2-2.0 [facility] Comment on above: Performed By: #### P T, PTT #### [facility] [address] [place] [address] Dr. Moira Green BLAST # Normal [facility] Comment on above: Performed By: #### P T, PTT #### [facility] [address] [place] [address] Dr. Moira Green BLAST % Normal [facility] Comment on above: Performed By: #### P T, PTT #### [facility] [address] [place] [address] Dr. Moira Green CORRECTED WBC Normal 4.0-11.0 [facility] Comment on above: Performed By: #### P T, PTT #### [facility] [address] [place] [address] Dr. Moira Green EOS # 0.00 103/ul Normal 0.00-0.70 [facility] Comment on above: Performed By: #### P T, PTT #### [facility] [address] [place] [address] Dr. Moira Green EOS% 0.0 % Critically low 0.9-7.0 [facility] Comment on above: Performed By: #### P T, PTT #### [facility] [address] [place] [address] Dr. Moira Green HCT 43.9 % Normal 36.0-48.0 [facility] Comment on above: Performed By: #### P T, PTT #### [facility] [address] [place] [address] Dr. Moira Green HGB 14.8 g/dl Normal 12.0-16.0 [facility] Comment on above: Performed By: #### P T, PTT #### [facility] [address] [place] [address] Dr. Moira Green LYMPHM # 1.31 103/ul Normal 1.20-3.80 [facility] Comment on above: Performed By: #### P T, PTT #### [facility] [address] [place] [address] Dr. Moira Green LYMPHM% 23.0 % Normal 20.5-60.0 [facility] Comment on above: Performed By: #### P T, PTT #### [facility] [address] [place] [address] Dr. Moira Green MCH 30.3 pg Normal 26.7-34.0 [facility] Comment on above: Performed By: #### P T, PTT #### [facility] [address] [place] [address] Dr. Moira Green MCHC 33.7 g/dl Normal 29.9-35.2 [facility] Comment on above: Performed By: #### P T, PTT #### [facility] [address] [place] [address] Dr. Moira Green MCV 89.8 fL Normal 81.0-99.0 [facility] Comment on above: Performed By: #### P T, PTT #### [facility] [address] [place] [address] Dr. Moira Green METAMYELOCYTE # 0.1 103/ul Normal [facility] Comment on above: Performed By: #### P T, PTT #### [facility] [address] [place] [address] Dr. Moira Green METAMYELOCYTE % 2 % Normal [facility] Comment on above: Performed By: #### P T, PTT #### [facility] [address] [place] [address] Dr. Moira Green MONOM# 0.40 103/ul Normal 0.30-0.80 [facility] Comment on above: Performed By: #### P T, PTT #### [facility] [address] [place] [address] Dr. Moira Green MONOM% 7.0 % Normal 1.7-12.0 [facility] Comment on above: Performed By: #### P T, PTT #### [facility] [address] [place] [address] Dr. Moira Green MPV 10.3 fL Normal 9.5-13.5 [facility] Comment on above: Performed By: #### P T, PTT #### [facility] [address] [place] [address] Dr. Moira Green MYELOCYTE # 0.1 103/ul Normal [facility] Comment on above: Performed By: #### P T, PTT #### [facility] [address] [place] [address] Dr. Moira Green MYELOCYTE % 1 % Normal [facility] Comment on above: Performed By: #### P T, PTT #### [facility] [address] [place] [address] Dr. Moira Green NRBC Normal [facility] Comment on above: Performed By: #### P T, PTT #### [facility] [address] [place] [address] [address] Moira Green PLT 151 103/ul Normal 150-450 [facility] Comment on above: Performed By: #### P T, PTT #### [facility] [address] [place] [address] [address] Moira Green RBC 4.89 106/ul Normal 4.20-5.40 [facility] Comment on above: Performed By: #### P T, PTT #### [facility] [address] [place] [address] [address] Moira Green RDW 12.1 % Normal 11.0-15.0 [facility] Comment on above: Performed By: #### P T, PTT #### [facility] [address] [place] [address] Dr. Moira Green SEG # 2.85 103/ul Normal 1.40-6.50 [facility] Comment on above: Performed By: #### P T, PTT #### [facility] [address] [place] [address] [address] Moira Green SEG % 50.0 % Normal 43.0-75.0 [facility] Comment on above: Performed By: #### P T, PTT #### [facility] [address] [place] [address] [address] Moira Green WBC 5.7 103/ul Normal 4.0-11.0 [facility] Comment on above: Performed By: #### P T, PTT #### [facility] [address] [place] [address] [address] Moira Green FREE T3on 04-30-2021 FREE T3 1.71 pg/mlL Critically low 2.77-5.[address] [facility] Comment on above: Performed By: #### T SH, BMP, FT3 #### [facility] [address] [place] [address] [address] Moira Green FREE T4on 04-30-2021 Free T4 [Mass/Vol] 1.00 ng/dL Normal 0.78-2.[address] [facility] Comment on above: Performed By: #### F T4 #### [facility] [address] [place] [address] Dr. Moira Green PROF CHEM 8 (BAS METB)on Anion gap [Moles/Vol] 14.1 mmol/L Normal [facility] Comment on above: Performed By: #### T MARTÍN BMP, FT3 #### [facility] [address] [place] [address] Dr. Moira Green Calcium [Mass/Vol] 8.7 mg/dL Normal 8.4-10.[address] [facility] Comment on above: Performed By: #### T MARTÍN BMP, FT3 #### [facility] [address] [place] [address] Dr. Moira Green Chloride [Moles/Vol] 101 mmol/L Normal 98-107 [facility] Comment on above: Performed By: #### T MARTÍN BMP, FT3 #### [facility] [address] [place] [address] Dr. Moira Green CO2 [Moles/Vol] 23.9 mmol/L Normal 22.0-30.0 [facility] Comment on above: Performed By: #### T MARTÍN BMP, FT3 #### [facility] [address] [place] [address] Dr. Moira Green Creatinine [Mass/Vol] 0.79 mg/dL Normal 0.52-1.04 [facility] Comment on above: Performed By: #### T MARTÍN BMP, FT3 #### [facility] [address] [place] [address] Dr. Moira Green EGFR-AF TOGOLESE >60 Normal >=60 [facility] Comment on above: Performed By: #### T MARTÍN BMP, FT3 #### [facility] [address] [place] [address] Dr. Moira Green EGFR-NON AF TOGOLESE >60 Normal >=60 [facility] Comment on above: Performed By: #### T MARTÍN BMP, FT3 #### [facility] [address] [place] [address] [address] Moira Green Glucose [Mass/Vol] 119 mg/dL Critically high 74-106 [facility] Comment on above: Performed By: #### T SH, BMP, FT3 #### [facility] [address] [place] [address] Dr. Moira Green Potassium [Moles/Vol] 4.0 mmol/L Normal 3.4-5.0 [facility] Comment on above: Performed By: #### T SH, BMP, FT3 #### [facility] [address] [place] [address] [address] Moira Green Sodium [Moles/Vol] 135 mmol/L Critically low 137-145 [facility] Comment on above: Performed By: #### T SH, BMP, FT3 #### [facility] [address] [place] [address] Dr. Moira Green Urea nitrogen [Mass/Vol] 9.0 mg/dL Normal 7.0-17.0 [facility] Comment on above: Performed By: #### T SH, BMP, FT3 #### [facility] [address] [place] [address] [address] Moira Green Urea nitrogen/Creatinine [Mass ratio] 11.4 mg/mg Normal [facility] Comment on above: Performed By: #### T SH, BMP, FT3 #### [facility] [address] [place] [address] Dr. Moira Green TSHon 04-30-2021 TSH 2.155 uIU/mL Normal 0.470-4.680 [facility] Comment on above: Performed By: #### T SH, BMP, FT3 #### [facility] [address] [place] [address] Dr. Moira Green TSH RANGE SEE BELOW Normal [facility] Comment on above: Result Comment: <0.3 4 UIU/ml HYPERTHYROID 0.34-5.60 UIU/ml EUTHYROID >5.60 UIU/ml HYPOTHYROID Performed By: #### T SH, BMP, FT3 #### [facility] [address] [place] [address] [address] Moira Green Blood Cultureon 01-17-2021 Bacteria identified Cx Nom (Bld) NO GROWTH 5 DAYS PERFORMED BY: [place] [address] PATHOLOGIST HAND ALTERATIONS TAILOR RM CURTIS M.D. [facility] Comment on above: Performed By: #### B MP, CBC, HEPATIC, LIPASE #### [address] Bacteria identified Cx Nom (Bld) NO GROWTH 5 DAYS PERFORMED BY: [place] [address] PATHOLOGIST HAND ALTERATIONS TAILOR RM CURTIS M.D. [facility] Comment on above: Performed By: #### B MP, CBC, HEPATIC, LIPASE #### [address] Complete Blood Count Auto Di ffon 01-17-2021 Basophils (Bld) [#/Vol] 0.0 10*3/uL Normal 0.0-0.2 [facility] Comment on above: Result Comment: PERF ORMED BY: [place] [address] PATHOLOGIST HAND ALTERATIONS TAILOR RM CURTIS M.D. Performed By: #### B MP, CBC, HEPATIC, LIPASE #### [place] [address] [place] Basophils/100 WBC (Bld) 0.4 % Normal . [facility] Comment on above: Performed By: #### B MP, CBC, HEPATIC, LIPASE #### [facility] [address] [place] [address] [place] Eosinophils (Bld) [#/Vol] 0.3 10*3/uL Normal 0.0-0.45 [facility] Comment on above: Performed By: #### B MP, CBC, HEPATIC, LIPASE #### [address] Eosinophils/100 WBC (Bld) 2.3 % Normal . [facility] Comment on above: Performed By: #### B MP, CBC, HEPATIC, LIPASE #### [address] Erythrocyte distribution width (RBC) [Ratio] 11.9 % Normal 11.9-15.3 [facility] Comment on above: Performed By: #### B MP, CBC, HEPATIC, LIPASE #### [address] Hematocrit (Bld) [Volume fraction] 39.1 % Normal 34.0-46.4 [facility] Comment on above: Performed By: #### B MP, CBC, HEPATIC, LIPASE #### [address] Hemoglobin (Bld) [Mass/Vol] 12.9 g/dL Normal 11.8-15.4 [facility] Comment on above: Performed By: #### B MP, CBC, HEPATIC, LIPASE #### [address] Lymphocytes (Bld) [#/Vol] 3.3 10*3/uL Normal 1.00-4.8 [facility] Comment on above: Performed By: #### B MP, CBC, HEPATIC, LIPASE #### [address] Lymphocytes/100 WBC (Bld) 29.0 % Normal . [facility] Comment on above: Performed By: #### B MP, CBC, HEPATIC, LIPASE #### [address] MCH (RBC) [Entitic mass] 30.2 pg Normal 24.7-34.3 [facility] Comment on above: Performed By: #### B MP, CBC, HEPATIC, LIPASE #### [address] MCV (RBC) [Entitic vol] 91.3 fL Normal 80-100 [facility] Comment on above: Performed By: #### B MP, CBC, HEPATIC, LIPASE #### [address] Mean Corpuscular HGB Conc 33.1 g/dL Normal 32.0-35.0 [facility] Comment on above: Performed By: #### B MP, CBC, HEPATIC, LIPASE #### [address] Monocytes (Bld) [#/Vol] 0.5 10*3/uL Normal 0.0-0.8 [facility] Comment on above: Performed By: #### B MP, CBC, HEPATIC, LIPASE #### [address] Monocytes/100 WBC (Bld) 4.8 % Normal . [facility] Comment on above: Performed By: #### B MP, CBC, HEPATIC, LIPASE #### [address] Neutrophils (Bld) [#/Vol] 7.2 10*3/uL Normal 1.8-7.7 [facility] Comment on above: Performed By: #### B MP, CBC, HEPATIC, LIPASE #### [address] Neutrophils/100 WBC (Bld) 63.5 % Normal . [facility] Comment on above: Performed By: #### B MP, CBC, HEPATIC, LIPASE #### [address] Nucleated RBC/100 WBC (Bld) [Ratio] 0.0 % Normal 0-0.5 [facility] Comment on above: Performed By: #### B MP, CBC, HEPATIC, LIPASE #### [address] Platelet mean volume (Bld) [Entitic vol] 8.2 fL Normal 6.3-10.7 [facility] Comment on above: Performed By: #### B MP, CBC, HEPATIC, LIPASE #### [address] Platelets (Bld) [#/Vol] 263 10*3/uL Normal 150-450 [facility] Comment on above: Performed By: #### B MP, CBC, HEPATIC, LIPASE #### [facility] [address] RBC (Bld) [#/Vol] 4.29 10*6/uL Normal 3.60-5.00 [facility] Comment on above: Performed By: #### B MP, CBC, HEPATIC, LIPASE #### [address] WBC (Bld) [#/Vol] 11.3 10*3/uL High 4.5-11.0 [facility] Comment on above: Performed By: #### B MP, CBC, HEPATIC, LIPASE #### [address] Lactic Acidon 01-17-2021 Lactate [Moles/Vol] 0.7 mmol/L Normal 0.5-2.2 [facility] Comment on above: Result Comment: PERF ORMED BY: [place] [address] PATHOLOGIST HAND ALTERATIONS TAILOR RM CURTIS M.D. Performed By: #### B MP, CBC, HEPATIC, LIPASE #### [address] Basic Metabolic Panelon Calcium [Mass/Vol] 9.1 mg/dL Normal 8.2-10.2 [facility] Comment on above: Performed By: #### B MP, CBC, HEPATIC, LIPASE #### [address] Chloride [Moles/Vol] 102 mmol/L Normal 95-114 [facility] Comment on above: Performed By: #### B MP, CBC, HEPATIC, LIPASE #### [address] CO2 [Moles/Vol] 25.0 mmol/L Normal 22.0-30.0 [facility] Comment on above: Performed By: #### B MP, CBC, HEPATIC, LIPASE #### [address] Creatinine [Mass/Vol] 0.69 mg/dL Normal 0.44-1.03 [facility] Comment on above: Performed By: #### B MP, CBC, HEPATIC, LIPASE #### [facility] [address] Creatinine Clr Calc Pharmacy 111.93 [facility] Comment on above: Performed By: #### B MP, CBC, HEPATIC, LIPASE #### [facility] [address] [place] [address] [place] Estimated GFR ( Zahira > 60 [facility] Comment on above: Result Comment: GFR estimated reference range: According to KDOQI guidelines, <60 ml/min/1.73m2 is sufficient to diagnose a patient with chronic kidney disease. Performed By: #### B MP, CBC, HEPATIC, LIPASE #### [address] Estimated GFR (Non- Am > 60 [facility] Comment on above: Performed By: #### B MP, CBC, HEPATIC, LIPASE #### [address] Glucose [Mass/Vol] 80 mg/dL Normal 70-100 [facility] Comment on above: Result Comment: [facility] Glucose Reference Range is dependent on time and content of last meal. Glucose of more than 200 mg/dL in a nonstressed, ambulatory subject supports the diagnosis of Diabetes Mellitus. ADA recommended reference range Performed By: #### B MP, CBC, HEPATIC, LIPASE #### [address] Potassium [Moles/Vol] 3.8 mmol/L Normal 3.5-5.1 [facility]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 Review of Systems Constitutional: Negative. HENT: Negative. Eyes: Negative. Respiratory: Negative. Cardiovascular: Negative. Gastrointestinal: Negative. Genitourinary: Negative. Musculoskeletal: Negative. Skin: Negative. Neurological: Negative. All other systems reviewed and are negative. Hematological: Negative. Endocrine: Negative. Allergic/Immunologic: Negative. Objective Physical Exam Constitutional: Appearance: Normal appearance. She is normal weight. HENT: Head: Normocephalic. Cardiovascular: Rate and Rhythm: Normal rate. Pulses: Normal pulses. Pulmonary: Effort: Pulmonary effort is normal. Breath sounds: Normal breath sounds. Abdominal: Palpations: Abdomen is soft. Musculoskeletal: General: Normal range of motion. Neurological: General: No focal deficit present. Mental Status: She is alert and oriented to person, place, and time. Psychiatric: Mood and Affect: Mood normal. Behavior: Behavior normal. Thought Content: Thought content normal. Judgment: Judgment normal. Vitals and nursing note reviewed. Assessment/Plan Encounter Diagnosis Name Primary? Encounter for weight management Adipex: Patient presents today for 3rd Adipex prescription. Patient desires additional weigh loss and she is currently taking metformin along with working out to achieve further results. Weight and blood pressure has been captured and I have discussed/reiterated the importance of keeping a food journal, proper nutrition/diet, and exercise regimen. Patient verbalized understanding. Patient has lost more than 5% of her initial body weight Follow Up: Patient doing well will follow up in 3 months for evaluation of weight and management Documented by: CHETAN Wan on behalf of CHETAN Wan documented in this encounter [facility] History of Present illness Narrative 03-15-2024 Ana Paula RobleroDO - 03/15/2024 4:00 PM EST Note Date & Type Note Facility 03-15-2024 History of Presen t illness Narrative Reason for Appointment: Patient ID: Jayden Roblero is a 23 y.o. female who presents for Weight Management Patient presents today for Acute Visit. Current Medications: has a current medication list which includes the following prescription(s): metformin xr and phentermine. Medical History: Active Ambulatory Problems Diagnosis Date Noted No Active Ambulatory Problems Resolved Ambulatory Problems Diagnosis Date Noted No Resolved Ambulatory Problems Past Medical History: Diagnosis Date Contraceptive management Depression (CMS/HCC) Irregular intermenstrual bleeding Family History Problem Relation Name Age of Onset Kidney disease Paternal Grandfather Social History Tobacco Use Smoking status: Never Smokeless tobacco: Never Substance Use Topics Alcohol use: Never Drug use: Never History reviewed. No pertinent surgical history. No Known Allergies Review of Systems: Review of Systems Objective OBGyn Exam Vitals: Estimated body mass index is 38.83 kg/m as calculated from the following: Height as of 23: 5'. Weight as of this encounter: 198 lb 12.8 oz. BP: 130/80 No LMP recorded. Assessment/Plan Encounter Diagnosis: ICD-10-CM 1. Encounter for weight management Z76.89 phentermine (Adipex-P) 37.5 MG tablet Patient presents today for initial Adipex prescription. The importance of keeping a food journal, proper nutrition/diet, and exercise regimen while taking Adipex has been discussed. Patient verbalized understanding and signed consents to initiate (Adipex) medication therapy. Patient was given a printed prescription signed by provider to take to their local pharmacy. Follow Up: Patient is to return to the office in 1 month for further evaluation to assess patient progress. Weight and blood pressure will need to be captured in order for patient to receive 2nd prescription. Documented by Ana Paula Roblero DO on behalf of: Ana Paula Roblero DO documented in this encounter [facility] History of Present illness Narrative 01-27-2024 Twila MartinezSCARLETT - 01/27/2024 10:00 AM EST Note Date & Type Note Facility 01-27-2024 History of Presen t illness Narrative Reason for Appointment: Patient ID: Jayden Roblero is a 23 y.o. female who presents for Questions with IUD Patient presents today for Acute Visit. MEDICATIONS No current outpatient medications ALLERGIES Allergies Allergen Reactions Permethrin PROBLEMS Active Ambulatory Problems Diagnosis Date Noted No Active Ambulatory Problems Resolved Ambulatory Problems Diagnosis Date Noted No Resolved Ambulatory Problems Past Medical History: Diagnosis Date Contraceptive management Depression (CMS/HCC) Irregular intermenstrual bleeding HISTORY PAST MEDICAL HISTORY SOCIAL HISTORY Past Medical History: Diagnosis Date Contraceptive management Depression (CMS/HCC) Irregular intermenstrual bleeding Social History Tobacco Use Smoking status: Never Smokeless tobacco: Never Substance Use Topics Alcohol use: Never Drug use: Never FAMILY HISTORY Family History Problem Relation Name Age of Onset Kidney disease Paternal Grandfather SURGICAL HISTORY History reviewed. No pertinent surgical history. REVIEW OF SYSTEMS Review of Systems: Review of Systems Constitutional: Negative. HENT: Negative. Eyes: Negative. Respiratory: Negative. Cardiovascular: Negative. Gastrointestinal: Negative. Genitourinary: Negative. Musculoskeletal: Negative. Skin: Negative. Neurological: Negative. All other systems reviewed and are negative. Hematological: Negative. Endocrine: Negative. Allergic/Immunologic: Negative. OBJECTIVE Objective: Physical Exam Constitutional: Appearance: Normal appearance. She is well-developed. Cardiovascular: Rate and Rhythm: Normal rate and regular rhythm. Pulmonary: Effort: Pulmonary effort is normal. Breath sounds: Normal breath sounds. Abdominal: General: Bowel sounds are normal. There is no distension. Palpations: Abdomen is soft. Tenderness: There is no abdominal tenderness. There is no guarding or rebound. Musculoskeletal: General: No swelling. Normal range of motion. Right lower leg: No edema. Left lower leg: No edema. Neurological: Mental Status: She is alert and oriented to person, place, and time. Skin: General: Skin is warm and dry. Psychiatric: Mood and Affect: Mood normal. Behavior: Behavior normal. Vitals and nursing note reviewed. Exam conducted with a automatic engraver present. Vitals: Estimated body mass index is 39.33 kg/m as calculated from the following: Height as of 07/28/22: 5'. Weight as of this encounter: 201 lb 6.4 oz. BP: 112/72 No LMP recorded. ASSESSMENT & PLAN ICD-10-CM 1. IUD check up Z30.431 Pt presents to discuss weight gain and IUD causing weight gain. Discussed adding metformin and eventually adipex. Pt given labs to have obtained. Rx for metformin faxed to pharmacy. Pt to return in 4 weeks for adipex. Pt will be increased on metformin to 1000mg. Documented by Twila Martinez LPN on behalf of: Ana Paula Roblero DO documented in this encounter [facility] Evaluation note Note Date & Type Note Facility Evaluation note Diagnosis IUD check up Weight gain Other symptoms concerning nutrition, metabolism, and development documented in this encounter [facility] Evaluation note Note Date & Type Note Facility Evaluation note Diagnosis Encounter for weight management documented in this encounter [facility] Evaluation note Note Date & Type Note Facility Evaluation note Diagnosis Encounter for weight management documented in this encounter [facility] Evaluation note Note Date & Type Note Facility Evaluation note Diagnosis Encounter for weight management documented in this encounter [facility] Evaluation note Note Date & Type Note Facility Evaluation note Diagnosis Well woman exam with routine gynecological exam Routine gynecological examination Skin tag Unspecified hypertrophic and atrophic condition of skin documented in this encounter [facility] History of Present illness Narrative Morena Blackman MA - 04/13/2024 3:50 PM EST Note Date & Type Note Facility History of Present illness Narrative Reason for Appointment: Patient ID: Jayden Roblero is a 23 y.o. female who presents for Adipex Patient presents today for a weight management consultation. Patient has been prescribed Adipex and she is here for her 2nd prescription. Today's Vitals: Estimated body mass index is 38.83 kg/m as calculated from the following: Height as of 07/28/22: 5'. Weight as of 03/15/24: 198 lb 12.8 oz. Previous Weight/BMI: Wt Readings from Last 2 Encounters: 03/15/24 198 lb 12.8 oz 01/27/24 201 lb 6.4 oz BMI Readings from Last 2 Encounters: 03/15/24 38.83 kg/m 01/27/24 39.33 kg/m Allergies as of 04/13/2024 (No Known Allergies) Past Medical History: Diagnosis Date Contraceptive management Depression (CMS/HCC) Irregular intermenstrual bleeding No past surgical history on file. Assessment/Plan Encounter Diagnosis Name Primary? Encounter for weight management Adipex: Patient presents today for 2nd Adipex prescription. Patients weight and blood pressure has been captured and discussed with the patient. I have discussed/reiterated the importance of keeping a food journal, proper nutrition/diet, and exercise regimen while taking Adipex. Patient verbalized understanding and was given a printed prescription signed by provider to take to their local pharmacy. Follow Up: Patient is to return to the office in 1 month for further evaluation to assess patient progress. Weight and blood pressure will need to be obtained in order for patient to receive 3rd prescription. Documented by: Morena Blackman MA on behalf of CHETAN Wan documented in this encounter [facility] Summary Purpose Family History No Family History Records FoundNo Family History Records FoundNo Family History Records FoundNo Family History Records Found Advance Directives No Advanced Directives Records FoundNo Advanced Directives Records FoundNo Advanced Directives Records FoundNo Advanced Directives Records Found Additional Source Comments INFORMATION SOURCE (unrecogn ized section and content) DATE CREATED AUTHOR 03/12/2021 [facility] DATE CREATED AUTHOR AUTHOR'S ORGANIZ ATION 05/12/2021 [facility] DATE CREATED AUTHOR AUTHOR'S ORGANIZ ATION 01/15/2023 Camara Archie [facility] DATE CREATED AUTHOR AUTHOR'S ORGANIZ ATION 07/15/2024 [facility] EPIC Reason for Visit (unrecogniz ed section and content) Reason Comments Questions with IUD Reason Comments Weight Management Reason Comments Adipex Reason Comments Well Women Visit FOR RECORDS PERTAINING TO PATIENTS WHO ARE [...] BE BASED ON THE PRIMARY CLINICAL RECORDS. [facility] [employer] provides no warranty or guarantee of the accuracy or completeness of information in this document.
[2024-11-07 13:09] LABS: Age Gdln ACOG Testing Note (.); IGP, rfx Aptima HPV ASCU Note (.)
== END 2024-11-01 12:09 | disposition home or self-care (01) ==
LOC: LAB 12:08
PROVIDERS: Visit Provider Physician Assistant
DX: Z01.419 Encounter for gynecological examination (general) (routine) without abnormal findings (principal)
CPT/HCPCS: 88175

== ENCOUNTER 2024-11-01 13:28 | Outpatient (REF) | payer OTHER, SELFPAY ==
--- OUTSIDE RECORDS SUMMARY | 2024-11-07 13:35 | XMS_ITS | CCD ---
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 flowsheet Cyndi BENTON Work Phone: [facility] Carl CRUZ Start: 11-01-2024 End: 11-07-2024 Bamboo flowsheet Cyndi BENTON Work Phone: [facility] Start: 11-01-2024 End: 11-07-2024 Clinisync Result Encounter Cyndi BENTON Work Phone: [facility] Unsolicited Start: 11-01-2024 End: 11-07-2024 External Result Encounter Ana Paula Harto DO Work Phone: [facility] Unsolicited Start: 11-01-2024 End: 11-01-2024 Departed Referred Ana Paula Annika -[facility] Start: 11-01-2024 End: 11-01-2024 ambulatory CYNDI WU [facility] Work Phone: Start: 11-01-2024 End: 11-01-2024 Patient encounter procedure Cyndi BENTON Work Phone: [facility] Work Phone: Start: 11-01-2024 End: 11-01-2024 Periodic preventive med est patient 18-39 yrs Cyndi BENTON Work Phone: [facility] Comment on above: Well woman exam with routine gynecological exam; Skin tag Start: 07-13-2024 End: 07-13-2024 Office outpatient visit 15 minutes Cyndi BENTON Work Phone: [facility] Comment on above: Encounter for weight management Start: 07-13-2024 End: 07-13-2024 ambulatory CYNDI WU Not Available Start: 07-13-2024 End: 07-13-2024 [...] PA Work Phone: [facility] Start: 04-13-2024 End: 04-13-2024 Bamboo flowsheet Cyndi BENTON Work Phone: [facility] Start: 03-15-2024 [...] Start: 01-14-2023 End: 01-15-2023 ambulatory Eloy Richards Facility:[facility] Start: 12-17-2022 End: 12-18-2022 ambulatory Eloy EdmondsLexii Maurice Facility: [facility] Start: 05-10-2021 End: 05-10-2021 ambulatory LUDWIG ZAYDA Facility:[facility] Start: 05-08-2021 End: 05-09-[address] MAIRA GODFREY Facility:[facility] Start: 04-30-2021 End: 05-01-[address] MAIRA GODFREY Facility:[facility] Procedures Date Procedure Procedure Detail Performing Clinician Start: 11-01-2024 PATHOLOGY REQUEST FO R LAB [facility] Ana Paula Annika DO Work Phone: Start: 11-01-2024 IGP,APTIMA HPV,AGE GDLN Cyndi BENTON Work Phone: Start: 01-27-2024 ALL CBC WITH AUTO DIFF Ana Paula Annika DO Work Phone: Plan of Treatment Date Care Activity Detail Author Start: 11-01-2024 [facility] Start: 07-13-2024 End: 07-13-2024 Patient encounter procedure 07/13/2024 3:20 PM EDT Office Visit [facility] [address] [place] [phone] Cyndi Wu PA [address] [place], [place] [id number] Arrived [facility] Comment on above: Arrived Start: 04-13-2024 End: 04-13-2024 Patient encounter procedure 04/13/2024 3:50 PM EST Office Visit [facility] [address] [place] [id number] Cyndi Wu PA [address] [place], [place] [id number] Encounter for weight management [facility] Comment on above: Encounter for weight management Start: 04-12-2024 End: 04-12-2024 Patient encounter procedure 04/12/2024 4:00 PM EST Office Visit [facility] [address] [place] [address] Cyndi Wu PA [address] [place] [address] [facility] Start: 03-15-2024 End: 03-15-2024 Patient encounter procedure 03/15/2024 4:00 PM EST Office Visit [facility] [address] [place] [phone] Ana Paula Roblero, DO [address] [place] [address] Arrived [facility] Comment on above: Arrived Start: 01-27-2024 End: 01-27-2024 Patient encounter procedure 01/27/2024 10:00 AM EST Office Visit [facility] [address] [place] [phone] Ana Paula Roblero, DO [address] [place] [address] Arrived [facility] Comment on above: Arrived CBC W Auto Different ial panel - Blood CBC and differential Lab Routine Weight gain Ordered: 01/27/2024 [facility] Work Phone: Comment on above: Ordered: 01/27/2024 Cytology Cervical or vaginal smear or scraping study Pap Smear Pathology and Cytology Routine Well woman exam with routine gynecological exam Ordered: 11/01/2024 [facility] Work Phone: Comment on above: Ordered: 11/01/2024 Hemoglobin A1c/Hemoglobin.total in Blood Hemoglobin A1c Lab Routine Weight gain Ordered: 01/27/2024 [facility] Comment on above: Ordered: 01/27/2024 Thyrotropin [Units/volume] in Serum or Plasma TSH Lab Routine Weight gain Ordered: 01/27/2024 [facility] Comment on above: Ordered: 01/27/2024 Payers Date Payer Category Payer Self-pay 2024 Unknown [id number] 2023 Private Health Insurance [id number] 2023 Unknown [id number] 2000 Unknown [id number] 93 2000 Unknown [id number] 93 2000 Unknown [id number] 93 2000 Unknown [id number] 27 2000 Unknown [id number] 27 2000 Unknown [id number] 259 2000 Unknown [id number] 259 2000 Unknown [id number] 259 2000 Unknown [id number] 259 2000 Unknown [id number] 259 1959 Unknown [id number] Medicaid [place] [id number] Unknown Regular Auto/Liability [id number] Unknown [id number] 31 Social History Date Type Detail Facility Start: 01-17-2021 End: 07-25-2022 Tobacco smoking status MSIS Never smoked tobacco [facility] Start: 07-25-2022 Tobacco use and exposure Smokeless tobacco non-user [facility] Start: 02-16-2023 End: 11-01-2024 Alcoholic beverage intake Lifetime non-drinker (finding) [facility] Start: 02-16-2023 End: 01-27-2024 History of Social function [facility] Start: 02-16-2023 End: 01-27-2024 Tobacco use panel [facility] Start: 2000 Sex assigned at Female N [facility] Start: 07-22-2022 Gender identity Identifies as female gender (finding) [facility] Sex Female (finding) [facility] Clinical Notes 01-27-2024 to 11-01-2024 CHETAN Wan - 11/01/2024 8:30 AM CHETAN Jiménez - 07/13/2024 3:20 PM Alexi Roblero DO - 03/15/2024 4:00 PM Shivam Martinez LPN - 01/27/2024 10:00 AM EST Note Date & Type Note Facility 11-01-2024 [...] nursing note reviewed. Exam conducted with a ear nose throat surgeon present. Vitals: Estimated body mass index is [...] of: CHETAN Wan documented in this encounter [facility] 07-13-2024 History of Presen t illness Narrative [...] Medical History: Diagnosis Date Contraceptive management Depression ([facility]) Irregular intermenstrual bleeding History reviewed. [...] of CHETAN Wan documented in this encounter [facility] 03-15-2024 History of Presen t illness Narrative [...] calculated from the following: Height as of 07/28/23: 5'. Weight as of this encounter: 198 [...] Paula Roblero DO documented in this encounter [facility] 01-27-2024 History of Presen t illness Narrative [...] nursing note reviewed. Exam conducted with a ear nose throat surgeon present. Vitals: Estimated body mass index is [...] in this encounter [facility] Evaluation note Diagnosis IUD check up Weight gain Other symptoms concerning nutrition, metabolism, and development documented in this encounter [facility] Diagnosis Encounter for weight management documented in this encounter [facility]* Diagnosis Encounter for weight management documented in this encounter [facility] Healthcare[facility] note* Diagnosis Encounter for weight management documented in this encounter [facility] HealthcareEvaluation note* Diagnosis Well woman exam with routine gynecological exam Routine gynecological examination Skin tag Unspecified hypertrophic and atrophic condition of skin documented in this encounter [facility] HealthcareEvaluation noteNo assessment information availableA[facility] Work Phone: History of Present illness Narrative* Morena Blackman MA - 04/13/2024 3:50 PM EST Reason for Appointment: Patient ID: Jayden Roblero is a 23 y.o. female who presents for Adipex Patient presents today for a weight management consultation. Patient has been prescribed Adipex andshe is here for her 2nd prescription. Today's [...] behalf of CHETAN Wan documented in [facility] HealthcareReason for referral (narrative)No reason for referral [facility] Work Phone: Summary Purpose Family History No Family History Records FoundNo Family History Records FoundNo Family History Records FoundNo Family History Records Found Advance Directives Advance Directive Response Recorded Date/ Time Advance Directives No December 7:31pm Additional Source Comments INFORMATION SOURCE (unrecogn ized section and content) DATE CREATED AUTHOR 05/12/2021 [facility] DATE CREATED AUTHOR AUTHOR'S ORGANIZ ATION 01/15/2023 [facility] DATE CREATED AUTHOR AUTHOR'S ORGANIZ ATION 11/02/2024 [facility] DATE CREATED AUTHOR AUTHOR'S ORGANIZ ATION 11/02/2024 [facility] Reason for Visit (unrecogniz ed section and content) Reason Comments Questions with IUD Reason Comments Weight Management Reason Comments Adipex Reason Comments Well Women Visit Care Teams (unrecognized sec tion and content) Team Status: Inactive Member Role Status Dates Ana Paula Roblero DO Attending Provider Active Start : November 01, 2024 End: November 01, 2024 Goals (unrecognized section and content) Goals may be documented in a n alternate section FOR RECORDS PERTAINING TO PATIENTS WHO ARE [...] BE BASED ON THE PRIMARY CLINICAL RECORDS. [facility] [employer] [facility]. provides no warranty or guarantee of the accuracy or completeness of information in this document.
== END 2024-11-01 13:29 | disposition home or self-care (01) ==
LOC: LAB 13:28
PROVIDERS: Visit Provider Obstetrics & Gynecology
DX: L91.8 Other hypertrophic disorders of the skin (principal); D23.5 Other benign neoplasm of skin of trunk